=== PATIENT | male | born 1965 | race Two or more races ===

== ENCOUNTER 2024-10-19 05:10 | Emergency (ER) | payer MEDICARE, SELFPAY ==
[2024-10-19 05:11] VITALS: BMI 30.6
--- NOTE | 2024-10-19 05:17 | XR_ITS ---
Examination: PA lateral chest 2 views Technique: Upright PA lateral chest 2 views Exam date and time: October 19, 2024 at 1723 hrs. Indications: Difficulty sleeping secondary to shortness of breath at night beginning 2 weeks ago. Findings: Normal heart size Mild vascular congestion There is thickening of the fissures on the lateral view and subtle septal interstitial markings at the lung bases Impression: Consider very early cardiac decompensation
--- NOTE | 2024-10-19 05:17 | EKG_ITS ---
[facility] Test Date: 2024-10-19 Pat Name: RODO COHN Department: Room: - Gender: Male Assistant Pressman: : 1965 Requested By: Luis Glasgow Order Number: [id number] Reading MD: Luis Glasgow Measurements Intervals [place] Rate: 76 P: 38 [place]: 156 QRS: -24 QRSD: 98 T: 45 QT: 412 QTc: 466 Interpretive Statements SINUS RHYTHM WITH OCCASIONAL VENTRICULAR PREMATURE COMPLEXES WITH OCCASIONAL SUPRAVENTRICULAR PREMATURE COMPLEXES BORDERLINE LEFT AXIS DEVIATION [QRS AXIS < -20] MODERATE VOLTAGE CRITERIA FOR LVH, CONSIDER NORMAL VARIANT [MEETS CRITERIA IN ONE OF: R(aVL), S(V1), R(V5), R(V5/V6)+S(V1)] NONSPECIFIC ST ELEVATION [0.05+ mV ST ELEVATION] No previous ECG available for comparison /[id number]/[email or web address]/[id number].pdf
--- NOTE | 2024-10-19 05:18 | PD.EDRME ---
Rapid Medical Screening Exam RME Arrival date/time: 10/19/24 05:10 59 year old male present to ED for c/o sob and flu like sx I have greeted and performed a focused initial assessment of this patient. A comprehensive ED assessment and evaluation of the patient, analysis of all test results, and completion of the medical decision making process will be conducted by additional ED providers. Chief Complaint: Flu Like Symptoms Time Seen by Provider: 10/19/24 05:13
[2024-10-19 05:47] VITALS: BP 154/96; PULSE 58; RESP 18; TEMP 36.9; O2SAT 98
[2024-10-19 05:47] LABS: Basophils % (Auto) 1 % (0-2.5); Eosinophils # (Auto) 0.2 Thou/mm3 (0.0-0.5); Eosinophils % (Auto) 2 % (0-10); Hematocrit 40.1 % (41.0-53.0); Immature Granulocytes % (Auto) 0 % (0-0); Immature Granulocytes Auto 0.02 Thou/mm3 (0.00-0.00); Lymphocytes # (Auto) 1.9 Thou/mm3 (1.0-4.8); Lymphocytes % (Auto) 29 % (10-50); Mean Corpuscular HGB Conc 32.4 g/dl (31.0-37.0); Mean Corpuscular Hemoglobin 26.7 pg (25.0-35.0); Mean Corpuscular Volume 82 fL (80-100); Monocytes # (Auto) 0.6 Thou/mm3 (0.0-0.8); Monocytes % (Auto) 8 % (0-12); Neutrophils # (Auto) 4.1 Thou/mm3 (1.8-7.7); Neutrophils % (Auto) 60 % (37-80); Nucleated Red Blood Cell % 0 /100 WBC (0); Platelet Count 195 Thou/mm3 (140-440); RDW Standard Deviation 38.7 fL (35.1-43.9); Red Blood Count 4.87 Miln/mm3 (4.50-5.90); White Blood Count 6.8 Thou/mm3 (3.8-10.6)
[2024-10-19 06:09] LABS: B-Type Natriuretic Peptide 160 pg/mL (0-100)
[2024-10-19 06:11] LABS: Alanine Aminotransferase 23 U/L (10-49); Albumin, Serum 4.5 gm/dL (3.5-5.0); Alkaline Phosphatase 67 U/L (46-116); Anion Gap 9 (7-16); Aspartate Amino Transferase 19 U/L (0-34); BUN/Creatinine Ratio 17 Ratio (12-20); Bilirubin,Total 0.4 mg/dL (0.3-1.2); Blood Urea Nitrogen 17 mg/dL (9-23); Calcium 9.1 mg/dL (8.3-10.6); Calcium (Corrected) 9.1 mg/dL (8.5-10.1); Carbon Dioxide 27.3 mMol/L (20.0-31.0); Chloride 101 mMol/L (98-107); Estimated Creatinine Clearance 73.7 mL/min (>60); Globulin 2.2 gm/dL (2.3-3.5); Glucose 204 mg/dL (74-106); Lipase 57 U/L (12-53); Osmolality,Calculated 281 (275-295); Potassium 3.5 mMol/L (3.4-5.1); Sodium 137 mMol/L (136-145); Total Protein 6.7 gm/dL (5.7-8.2); Troponin I 0.024 ng/mL (0.0-0.045); eGFR > 60 See Note
[2024-10-19 07:00] LABS: Amphetamine/Methamp Scrn,U Negative (Negative); Barbiturate Screen,Urine Negative (Negative); Benzodiazepines Screen,Urine Negative (Negative); Benzoylecgonine Screen, Ur Negative (Negative); Fentanyl Screen,Urine Negative (Negative); Opiate Screen,Urine Negative (Negative); THC Screen,Urine Negative (Negative)
--- NOTE | 2024-10-19 08:55 | PC.NURSE ---
Dr. Urbina made aware that Pt wants to talk to him
--- NOTE | 2024-10-19 09:00 | PC.NURSE ---
Pt made aware that the Er Dr reports that he will be in to see him as soon as he can. Pt got up out of bed and reported that he is leaving because the doctor was talking to long to see him. Charge nurse made aware.
== END 2024-10-19 09:00 | disposition left against medical advice (07) ==
PROVIDERS: Nurse Practitioner Primary Care; Physician Assistant; Emergency Provider Emergency Medicine; PCP Orthopaedic Surgery
DX: R06.02 Shortness of breath (principal); Z53.21 Procedure and treatment not carried out due to patient leaving prior to being seen by health care provider
CPT/HCPCS: 36415; 71046; 80053; 80307; 83690; 83880; 84484; 85025; 87400; 87811; 93005; 99281